=== PATIENT | female | born 1945 | race Caucasian/White ===

== ENCOUNTER 2022-01-27 08:57 | Emergency (ER) | payer BC, SELFPAY ==
--- NOTE | ~2022-01-27 | XR_ITS ---
EXAMINATION: XR CHEST CLINICAL INFORMATION: Weakness. COMPARISON: None TECHNIQUE: Frontal view of the chest was obtained. Rotated positioning is suboptimal. FINDINGS: The patient's chin partially obscures the left apex. The lungs appear clear. The heart and mediastinal structures are unremarkable. Multilevel sternotomy wires are intact. XR/XR chest 1V IMPRESSION: Limited study without overt acute cardiopulmonary process.
--- NOTE | ~2022-01-27 | CT_ITS ---
EXAMINATION: CT HEAD WITHOUT CONTRAST CLINICAL INFORMATION: Altered mental status. COMPARISON: None TECHNIQUE: Contiguous axial imaging was performed from the skull base to vertex without intravenous administration of contrast. Coronal and sagittal reformatted images were obtained. This CT examination was performed using dose optimization techniques as appropriate, variously including the following: *Automated exposure control *Adjustment of mA and/or kV according to patient size (this includes techniques or standardized protocols for targeted exams where dose is matched to indication/reason for exam; i.e. extremities or head) *Use of iterative reconstruction technique DLP: 680 mGy-cm FINDINGS: There is mild widening of the cortical sulci and associated ventriculomegaly. The lateral ventricles are symmetrical. The third and fourth ventricles are in their normal midline position. The basilar and prepontine cisterns are unremarkable. There is no acute intra or extracerebral abnormality. There is no mass effect or midline shift. Sections through the bony calvarium are unremarkable. The orbits are intact. The paranasal sinuses are clear. The mastoid air cells are clear. CT/CT head/brain wo con IMPRESSION: No acute intracranial pathology.
--- NOTE | 2022-01-27 09:04 | ED.WEAKNESS ---
HPI - Weakness General Chief complaint: General Medical Stated complaint: weakness, ams Time Seen by Provider: 01/27/22 09:04 Source: patient Mode of arrival: EMS Limitations: altered mental status (cognitive impairment) History of Present Illness HPI Narrative: reportedly at assisted living facility - couldn't get out of chair was too weak Complaint: generalized weakness Onset (ago): day(s) (lsat night) Duration: constant Location: generalized Migration: none Severity: moderate Quality: aching Relieving factors: none Exacerbating factors: movement Context: recent illness Associated symptoms: denies other symptoms Related Data Allergies Allergy/AdvReac Type Severity Reaction Status Date / Time No Known Allergies Allergy Verified 01/27/22 09:12 Review of Systems Review of Systems: ROS unable to be obtained due to advanced dementia [facility] Past Medical History Source: nursing notes reviewed Medical History (Updated 01/27/22 @ 09:37 by Clarisse Matias DO) Afib Anticoagulated CHF (congestive heart failure) Dementia Hip fracture Thoracic aortic aneurysm UTI (urinary tract infection) Social History Social History (Updated 01/27/22 @ 09:15 by Clarisse Matias DO) Patient Tobacco Use Status: Tobacco use Unknown Advance Directives: Yes Advance Directives on File: Yes Advance Directives Date on File: 01/27/22 Physical Exam Vital Signs: Vital Signs: Last Vital Signs Temp 98.6 F 01/27/22 09:12 Pulse 83 01/27/22 09:12 Resp 16 01/27/22 09:12 BP 134/86 01/27/22 09:12 Pulse Ox 96 01/27/22 09:12 BMI result Body Mass Index 28.0 Appearance: Alert. Oriented X1 (self). No acute distress. Eyes: Pupils equal, round and reactive to light. ENT: Pharynx normal. Neck: Normal inspection. Neck supple. CVS: Normal heart rate and rhythm. Pulses normal. Respiratory: No respiratory distress. Breath sounds normal. Abdomen: Soft and nontender. Skin: Skin warm and dry. Normal skin color. Normal skin turgor. Extremities: 1+ pittind LE edema. No calf ttp Neuro: Oriented X 1 (self). No motor deficit. No sensory deficit. Course Course Course Narrative: records from [facility] requested - admitted for mechanical fall no fracture, COVID pos 01/16 needed placement no resp issues DC 4/28 medically cleared for CM Patient placed in physician observation at 1055am. The indication for observation is that the patient needs more time for CM to aid in safe DC. At this time the patient is well developed well nourished, lungs clear, CV RRR, abd nontender, neuro is at baseline MDM - Weakness MDM Narrative Medical decision making narrative: 76 yo female with hx of dementia, UTIs, at assisted living facility, just seen at [facility] unsure for what she reports femur fracture ?, on eliquis for unknown reason - at this time will obtain labs, UA, CT head/CXR given her vague complaints of weaknes, blood thinner use. She is a poor historian. Dispo per results and findings. Lab Data Result diagrams: 01/27/22 09:24 01/27/22 09:24 Labs: Lab Results 01/27/22 01/27/22 01/27/22 Range/Units 09:24 09:24 09:24 WBC 10.6 (4.8-10.8) X10*3/uL RBC 4.63 (4.20-5.50) X10*6/uL Hgb 12.4 (12.0-16.0) g/dl Hct 37.8 (37.0-47.0) % MCV 81.6 (80.0-98.0) fL MCH 26.8 L (27.0-33.0) pg MCHC 32.8 (31.0-35.0) g/dl RDW 14.0 (11.0-16.0) % Plt Count 293 (160-400) X10*3/uL MPV 9.0 L (9.4-12.3) fL Immature Gran % (Auto) 0.6 H (0.0-0.4) % Neut % (Auto) 83.9 H (45-73) % Lymph % (Auto) 9.8 L (20-40) % [place] % (Auto) 4.8 (2-11) % Eos % (Auto) 0.3 (0-4) % Baso % (Auto) 0.6 (0-2) % Lymph # (Auto) 1.0 L (1.2-4.9) X10*3/uL [place] # (Auto) 0.5 (0.1-1.2) X10*3/uL Eos # (Auto) 0.0 (0.0-0.4) X10*3/uL Baso # (Auto) 0.1 (0.0-0.2) X10*3/uL Abs Immat Gran (auto) 0.06 H (0.00-0.03) X10*3/uL Absolute Neuts (auto) 8.9 H (2.0-8.3) x10*3/uL Absolute Nucleated RBC 0.000 (0.0-0.012) X10*3/uL Nucleated RBC % (auto) 0.0 (0.0-0.2) /100WBC APTT 37.2 (24.1-38.0) SEC Sodium 138 (135-145) mmol/L Potassium 4.3 (3.3-5.1) mmol/L Chloride 106 (96-108) mmol/L Carbon Dioxide 23 (22-29) mmol/L Anion Gap 13 (12-20) BUN 31 H (9-16) mg/dL Creatinine 0.88 (0.5-1.4) mg/dL Estim Creat Clear Calc 54.4 Estimated GFR > 60 Random Glucose 112 (60-115) mg/dL Lactic Acid (0.5-2.0) mmol/L Calcium 9.8 (8.4-10.2) mg/dL Magnesium 2.0 (1.6-2.6) mg/dL Total Bilirubin 1.0 (0.0-1.0) mg/dL Direct Bilirubin 0.4 (0.0-0.5) mg/dL AST 16 (5-31) U/L ALT 8 (0-31) U/L Alkaline Phosphatase 124 H (39-117) U/L Total Creatine Kinase 169 H (26-140) U/L Troponin I High Sens (<3.5-17.0) ng/L Total Protein 6.4 L (6.5-8.0) g/dL Albumin 3.9 (3.5-5.0) g/dL Lipase 15 (8-78) U/L TSH (0.32-4.0) uIU/mL Urine Color Urine Appearance Urine pH (5.0-8.0) Ur Specific [place] (1.005-1.025) Urine Protein (NEG-TRACE) MG/DL Urine Glucose (UA) (NEG) MG/DL Urine Ketones (NEG) MG/DL Urine Blood (NEG) Urine Nitrite (NEG) Ur Leukocyte Esterase (NEG) COVID-19 (JUAN PABLO) (Negative) COVID-19 Clin Com 01/27/22 01/27/22 01/27/22 Range/Units 09:24 09:24 09:26 WBC (4.8-10.8) X10*3/uL RBC (4.20-5.50) X10*6/uL Hgb (12.0-16.0) g/dl Hct (37.0-47.0) % MCV (80.0-98.0) fL MCH (27.0-33.0) pg MCHC (31.0-35.0) g/dl RDW (11.0-16.0) % Plt Count (160-400) X10*3/uL MPV (9.4-12.3) fL Immature Gran % (Auto) (0.0-0.4) % Neut % (Auto) (45-73) % Lymph % (Auto) (20-40) % [place] % (Auto) (2-11) % Eos % (Auto) (0-4) % Baso % (Auto) (0-2) % Lymph # (Auto) (1.2-4.9) X10*3/uL [place] # (Auto) (0.1-1.2) X10*3/uL Eos # (Auto) (0.0-0.4) X10*3/uL Baso # (Auto) (0.0-0.2) X10*3/uL Abs Immat Gran (auto) (0.00-0.03) X10*3/uL Absolute Neuts (auto) (2.0-8.3) x10*3/uL Absolute Nucleated RBC (0.0-0.012) X10*3/uL Nucleated RBC % (auto) (0.0-0.2) /100WBC APTT (24.1-38.0) SEC Sodium (135-145) mmol/L Potassium (3.3-5.1) mmol/L Chloride (96-108) mmol/L Carbon Dioxide (22-29) mmol/L Anion Gap (12-20) BUN (9-16) mg/dL Creatinine (0.5-1.4) mg/dL Estim Creat Clear Calc Estimated GFR Random Glucose (60-115) mg/dL Lactic Acid 1.0 (0.5-2.0) mmol/L Calcium (8.4-10.2) mg/dL Magnesium (1.6-2.6) mg/dL Total Bilirubin (0.0-1.0) mg/dL Direct Bilirubin (0.0-0.5) mg/dL AST (5-31) U/L ALT (0-31) U/L Alkaline Phosphatase (39-117) U/L Total Creatine Kinase (26-140) U/L Troponin I High Sens < 3.5 (<3.5-17.0) ng/L Total Protein (6.5-8.0) g/dL Albumin (3.5-5.0) g/dL Lipase (8-78) U/L TSH 1.21 (0.32-4.0) uIU/mL Urine Color Urine Appearance Urine pH (5.0-8.0) Ur Specific [place] (1.005-1.025) Urine Protein (NEG-TRACE) MG/DL Urine Glucose (UA) (NEG) MG/DL Urine Ketones (NEG) MG/DL Urine Blood (NEG) Urine Nitrite (NEG) Ur Leukocyte Esterase (NEG) COVID-19 (JUAN PABLO) (Negative) COVID-19 Clin Com 01/27/22 01/27/22 Range/Units 09:33 10:42 WBC (4.8-10.8) X10*3/uL RBC (4.20-5.50) X10*6/uL Hgb (12.0-16.0) g/dl Hct (37.0-47.0) % MCV (80.0-98.0) fL MCH (27.0-33.0) pg MCHC (31.0-35.0) g/dl RDW (11.0-16.0) % Plt Count (160-400) X10*3/uL MPV (9.4-12.3) fL Immature Gran % (Auto) (0.0-0.4) % Neut % (Auto) (45-73) % Lymph % (Auto) (20-40) % [place] % (Auto) (2-11) % Eos % (Auto) (0-4) % Baso % (Auto) (0-2) % Lymph # (Auto) (1.2-4.9) X10*3/uL [place] # (Auto) (0.1-1.2) X10*3/uL Eos # (Auto) (0.0-0.4) X10*3/uL Baso # (Auto) (0.0-0.2) X10*3/uL Abs Immat Gran (auto) (0.00-0.03) X10*3/uL Absolute Neuts (auto) (2.0-8.3) x10*3/uL Absolute Nucleated RBC (0.0-0.012) X10*3/uL Nucleated RBC % (auto) (0.0-0.2) /100WBC APTT (24.1-38.0) SEC Sodium (135-145) mmol/L Potassium (3.3-5.1) mmol/L Chloride (96-108) mmol/L Carbon Dioxide (22-29) mmol/L Anion Gap (12-20) BUN (9-16) mg/dL Creatinine (0.5-1.4) mg/dL Estim Creat Clear Calc Estimated GFR Random Glucose (60-115) mg/dL Lactic Acid (0.5-2.0) mmol/L Calcium (8.4-10.2) mg/dL Magnesium (1.6-2.6) mg/dL Total Bilirubin (0.0-1.0) mg/dL Direct Bilirubin (0.0-0.5) mg/dL AST (5-31) U/L ALT (0-31) U/L Alkaline Phosphatase (39-117) U/L Total Creatine Kinase (26-140) U/L Troponin I High Sens (<3.5-17.0) ng/L Total Protein (6.5-8.0) g/dL Albumin (3.5-5.0) g/dL Lipase (8-78) U/L TSH (0.32-4.0) uIU/mL Urine Color YELLOW Urine Appearance CLEAR Urine pH 6.0 (5.0-8.0) Ur Specific [place] 1.020 (1.005-1.025) Urine Protein TRACE (NEG-TRACE) MG/DL Urine Glucose (UA) NEG (NEG) MG/DL Urine Ketones NEG (NEG) MG/DL Urine Blood NEG (NEG) Urine Nitrite NEG (NEG) Ur Leukocyte Esterase NEG (NEG) COVID-19 (JUAN PABLO) Positive A (Negative) COVID-19 Clin Com See Note ECG Data Attestation: I personally reviewed and interpreted this ECG as follows: ECG interpretation date: 01/27/22 ECG interpretation time: 10:16 Interpretation: Rate: 81 Rhythm: afib [place]: normal Normal QRS complex. ST T wave : nonspecific, no THIAGO qTC: normal prior studies: no acute ischemia The study has been interpreted contemporaneously by me. . Discharge Plan Discharge Clinical Impression: Weakness Patient Disposition: Still a Patient
[2022-01-27 09:12] VITALS: BP 134/86; PULSE 83; RESP 16; TEMP 37; O2SAT 96; BMI 28.0
--- NOTE | 2022-01-27 09:13 | ECG_ITS ---
Test Reason : WEAKNESS Blood Pressure : / mmHG Vent. Rate : 081 BPM Atrial Rate : 000 BPM P-R Int : 000 ms QRS Dur : 086 ms QT Int : 362 ms P-R-T Axes : 000 026 -27 degrees QTc Int : 420 ms Atrial fibrillation Nonspecific T wave abnormality Abnormal ECG No previous ECGs available Referred By: Clarisse Matias Electronically Signed By:Valdez Greene
[2022-01-27 09:30] LABS: MANUAL DIFF FLAG NO
[2022-01-27 09:35] LABS: Basophils Absolute Auto 0.1 X10*3/uL (0.0-0.2); Basophils Percent Auto 0.6 % (0-2); Eosinophils Percent Auto 0.3 % (0-4); Hematocrit 37.8 % (37.0-47.0); Hemoglobin 12.4 g/dl (12.0-16.0); Imm Gran Abs Auto 0.06 X10*3/uL (0.00-0.03); Imm Gran Pct Auto 0.6 % (0.0-0.4); Lymphocytes Percent Auto 9.8 % (20-40); Mean Corpuscular HGB Conc 32.8 g/dl (31.0-35.0); Mean Corpuscular Hemoglobin 26.8 pg (27.0-33.0); Mean Corpuscular Volume 81.6 fL (80.0-98.0); Monocytes Absolute Auto 0.5 X10*3/uL (0.1-1.2); Monocytes Percent Auto 4.8 % (2-11); Neutrophils Absolute Auto 8.9 x10*3/uL (2.0-8.3); Neutrophils Percent Auto 83.9 % (45-73); Platelet Count 293 X10*3/uL (160-400); Red Blood Count 4.63 X10*6/uL (4.20-5.50); White Blood Count 10.6 X10*3/uL (4.8-10.8)
[2022-01-27 09:44] LABS: Partial Thromboplastin Time 37.2 SEC (24.1-38.0)
[2022-01-27 09:52] LABS: COVID-19 Test Positive (Negative); IDNOW Serial# 16C4AD1C
[2022-01-27 09:56] LABS: Alanine Aminotransferase 8 U/L (0-31); Albumin Level 3.9 g/dL (3.5-5.0); Alkaline Phosphatase 124 U/L (39-117); Anion Gap 13 (12-20); Aspartate Amino Transferase 16 U/L (5-31); Bilirubin Direct 0.4 mg/dL (0.0-0.5); Blood Urea Nitrogen 31 mg/dL (9-16); Calcium 9.8 mg/dL (8.4-10.2); Carbon Dioxide 23 mmol/L (22-29); Chloride 106 mmol/L (96-108); Creatinine Clr Calc Pharmacy 54.4; Estimated Glomerular Filt Rate > 60; Glucose Random 112 mg/dL (60-115); Lipase 15 U/L (8-78); Potassium 4.3 mmol/L (3.3-5.1); Sodium 138 mmol/L (135-145); Total Protein 6.4 g/dL (6.5-8.0)
[2022-01-27 09:59] LABS: Troponin-I High Sensitivity < 3.5 ng/L (<3.5-17.0)
[2022-01-27 10:14] LABS: TSH reflex Free T4 1.21 uIU/mL (0.32-4.0)
--- NOTE | 2022-01-27 10:41 | PC.NURSE ---
straight cath completed- pt tolerated well
[2022-01-27 10:51] LABS: Appearance Urine CLEAR; Color Urine YELLOW; Glucose Urine UA NEG (NEG); Leukocyte Esterase Urine NEG (NEG); Nitrite Urine NEG (NEG); Urine Blood NEG (NEG); Urine Ketones NEG (NEG); Urine Protein TRACE MG/DL (NEG-TRACE)
--- NOTE | 2022-01-27 10:58 | PC.NURSE ---
plan for pt/cm consults
[2022-01-27 11:14] VITALS: PULSE 79; RESP 14; TEMP 36.8; O2SAT 97
--- NOTE | 2022-01-27 13:36 | MHC.CM.ED ---
Received case management consult from Dr Matias. Patient came to ER from [facility]. Patient has never been to [facility] [place]. Patient was d/c'd from [facility] on 01/24 with Edna FARRISA. Patient originally tested positive for Covid on 01/16. Per Nery at [facility], patient is from their assisted living building. Patient can be confused but is mostly able to identify when ADL's need to be done. But since discharge from [facility], patient has been experiencing increased weakness. ER work up is essentially negative at this time. Patient has a conservator, Maryellen. Attempted to reach Maryellen via telephone at [phone]. Left message requesting return telephone call to find out if Maryellen is patient's guardian as well. HCP from [facility], lists Amaya and Sharmin as her proxies. Attempted to reach Amaya via telephone at [phone]. Left message requesting return telephone call. Attempted to reach Sharmin via telephone at [phone]. Left message requesting return telephone call. Physical therapy eval is pending at this time. Anticipate STR will be needed. Referral broadcasted in [facility] at this time. Continue to monitor for d/c needs.
[2022-01-27 15:36] VITALS: RESP 16; TEMP 36.9; O2SAT 98
--- NOTE | 2022-01-27 16:38 | PHA.MEDREC ---
Pharmacy Consult ? Medication Reconciliation Pharmacy has completed the medication reconciliation. Patient was just discharged from [facility] on 01/24/22. She was discharged on doxycycline 100 mg BID for 5 days.
[2022-01-27 19:45] VITALS: BP 147/62; PULSE 75; RESP 16; TEMP 37.3; O2SAT 97
[2022-01-28 01:09] VITALS: BP 133/88; PULSE 72; RESP 14; O2SAT 97
[2022-01-28 06:31] VITALS: PULSE 64; RESP 16; O2SAT 96
--- NOTE | 2022-01-28 06:32 | PC.NURSE ---
Pt sleeping in bed in NAD, wakes easily to voice, denies pain. VSS @ this time.
--- NOTE | 2022-01-28 08:38 | MHC.CM.ED ---
Patient remains in ER. Physical therapy eval completed. Short term rehab is recommended. Tried to return Amaya's call via telephone at [phone]. Left message reqeusting return telephone call. Tried to return Sharmin's call via telephone at [phone]. Left message requesting return telephone call. Continue to monitor for d/c needs.
--- NOTE | 2022-01-28 08:56 | MHC.CM.ED ---
Received return telephone call from Amaya. She can be reached via cell at [phone]. She is agreable to STR for patient. Amaya understands referral has been broadcasted and CM will discuss any bed offer with her. Continue to monitor for d/c needs.
[2022-01-28] MEDS: Furosemide 40 MG TABLET PO (09:48)
[2022-01-28] MEDS: Cyanocobalamin (Vitamin B-12) 1,000 MCG TABLET 1000 MCG PO (09:48)
[2022-01-28] MEDS: dilTIAZem HCL CD 180 MG CAP.ER.24H PO (09:48)
[2022-01-28] MEDS: Apixaban 5 MG TABLET PO ×2 (09:48→20:42)
[2022-01-28] MEDS: risperiDONE 0.25 MG TABLET PO (09:49)
--- NOTE | 2022-01-28 13:39 | MHC.CM.ED ---
Addendum entered by Cherelle Pitts 01/28/22 14:24: COVID + on 01/16 at [facility]: asymptomatic: this information is in the ED Summary that the STR referrals have access to. Addendum entered by Cherelle Pitts 01/28/22 14:21: Review of EMR notes pt tested COVID + on 01/27 at [facility]. This may be a barrier to transfer. Will update referrals to ensure transparency of information. Original Note: Met with pt who was alert, pleasant but unaware of why she is in the ED. [facility] interested [facility] pt but does not have bed availability today. They suggest contacting on 01/29 in the am. [facility] also interested - they are requesting an updated PT note on 01/29 to submit for insurance auth. They also do not have bed availability today but expect a bed tomorrow. Call placed to pt's HCP, Amaya at [phone] to update her on above. She will contact cathleen Finney's other support person to discuss STR options. 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 peonies) and was very artistic. Amaya states if pt gets a little whiffy to talk about these things as it helps. Pt will board in the ED pending PT reassessment / facility bed availability on 01/29. ED care team aware of plan.
--- NOTE | 2022-01-28 15:14 | PC.NURSE ---
Patient had liquid BM. Patient is cleaned up and resting. 01/28/2022
[2022-01-28 15:27] VITALS: BP 125/44; PULSE 53; RESP 12; TEMP 36.5; O2SAT 99
--- NOTE | 2022-01-28 16:28 | PC.NURSE ---
Pt will have bed tomorrow at [place] [facility]
--- NOTE | 2022-01-28 17:30 | PC.NURSE ---
Pt cleaned for urine incontinence and repositioned to back in hospital bed. Reassured. Remains confused, making statements that this RN will harm pt but good effect with verbal redirection.
[2022-01-28 19:39] VITALS: BP 135/55; PULSE 77; RESP 18; TEMP 36.8; O2SAT 99
[2022-01-28] MEDS: risperiDONE 0.25 MG TABLET 0.5 MG PO (20:42)
[2022-01-28] MEDS: Melatonin 3 MG TABLET 6 MG PO (20:42)
[2022-01-29 03:13] VITALS: BP 126/49; PULSE 64; RESP 14; O2SAT 99
[2022-01-29] MEDS: Apixaban 5 MG TABLET PO ×2 (07:56→20:22)
[2022-01-29] MEDS: Cyanocobalamin (Vitamin B-12) 1,000 MCG TABLET 1000 MCG PO (07:56)
[2022-01-29] MEDS: dilTIAZem HCL CD 180 MG CAP.ER.24H PO (07:57)
[2022-01-29] MEDS: Furosemide 40 MG TABLET PO (07:58)
[2022-01-29] MEDS: risperiDONE 0.25 MG TABLET PO (07:58)
--- NOTE | 2022-01-29 08:35 | MHC.CM.ED ---
Patient remains in ER. Clinical updates sent to [facility]. Continue to monitor for d/c needs.
[2022-01-29 08:55] VITALS: BP 106/50; PULSE 64; RESP 14; TEMP 36.4; O2SAT 100
--- NOTE | 2022-01-29 10:34 | PC.NURSE ---
Medium BM noted, loose in nature. Reddend bottom noted. skin cleansed. Barrier cream applied. Pt offloaded.
--- NOTE | 2022-01-29 12:16 | MHC.CM.ED ---
Patient remains in ER. [facility] is not able to offer a bed. [facility]'t have a bed today. [facility] does have a bed. Spoke with HCP/friend, Amaya via telephone at [phone]. Amaya agreeable to bed at [facility]. [facility] is in the process of obtaining insurance auth. Continue to monitor for d/c needs.
[2022-01-29 14:50] VITALS: BP 111/47; PULSE 62; RESP 14; TEMP 36.6; O2SAT 98
--- NOTE | 2022-01-29 15:32 | MHC.CM.ED ---
Received telephone call from Cynthia garcia [facility]. [facility] has not processed auth yet. Anticipate patient will be in ER overnight. Continue to monitor for d/c needs.
[2022-01-29] MEDS: Melatonin 3 MG TABLET 6 MG PO (20:22)
[2022-01-29] MEDS: risperiDONE 0.25 MG TABLET 0.5 MG PO (20:22)
--- NOTE | 2022-01-29 20:27 | PC.NURSE ---
pt resting in bed, pleasantly confused, compliant with med administration
--- NOTE | 2022-01-29 21:00 | PC.NURSE ---
pt incontinent of urine, given incontinent care by chief ophthalmic technician, 1 assist, pt resting in bed at this time
[2022-01-29 22:40] VITALS: BP 110/43; PULSE 76; RESP 16; TEMP 36.6; O2SAT 99
--- NOTE | 2022-01-29 23:29 | PC.NURSE ---
pt sleeping in bed, checked for positioning
[2022-01-30 00:14] VITALS: PULSE 66; RESP 15; O2SAT 99
[2022-01-30 00:20] VITALS: RESP 16; O2SAT 98
[2022-01-30 04:27] VITALS: BP 128/76; PULSE 74; RESP 16; TEMP 36.6; O2SAT 98
[2022-01-30 06:03] VITALS: PULSE 74; RESP 18; O2SAT 97
--- NOTE | 2022-01-30 07:13 | PC.NURSE ---
Report received. Patient asleep on stretcher at this time. Respirations regular, even, and nonlabored. Skin PWD. Patient awaiting insurance authorization for [facility] transfer. Will continue to monitor.
[2022-01-30] MEDS: dilTIAZem HCL CD 180 MG CAP.ER.24H PO (10:07)
[2022-01-30] MEDS: Furosemide 40 MG TABLET PO (10:07)
[2022-01-30] MEDS: Apixaban 5 MG TABLET PO (10:07)
[2022-01-30] MEDS: Cyanocobalamin (Vitamin B-12) 1,000 MCG TABLET 1000 MCG PO (10:07)
[2022-01-30] MEDS: risperiDONE 0.25 MG TABLET PO (10:08)
--- NOTE | 2022-01-30 10:14 | PC.NURSE ---
Patient medicated with AM meds. Remains resting on hospital bed. Reports comfort. Respirations regular and even. Skin PWD. Cleaned patient of incontinent urine. Replaced linens and gown. Placed purewik for urine collection at this time. Will continue to monitor.
--- NOTE | 2022-01-30 10:17 | MHC.CM.ED ---
Patient remains in ER. [facility] has obtained insurance auth. Patient can leave at 1130am. [facility] booked. Med [facility] with chart. Patient, Darleen Conde RN and Dr Matias aware. Edna DUMONT made aware. Continue to monitor for d/c needs.
--- NOTE | 2022-01-30 11:16 | PC.NURSE ---
Attempted to call [facility] for nurse to nurse report. Will reattempt
== END 2022-01-30 11:21 | disposition skilled nursing facility (03) ==
PROVIDERS: Emergency Provider Emergency Medicine; PCP Internal Medicine
DX: R53.1 Weakness (principal); R41.82 Altered mental status, unspecified; I48.91 Unspecified atrial fibrillation; I50.9 Heart failure, unspecified; F03.90 Unspecified dementia, unspecified severity, without behavioral disturbance, psychotic disturbance, mood disturbance, and anxiety; Z79.01 Long term (current) use of anticoagulants; Z20.822 Contact with and (suspected) exposure to COVID-19
CPT/HCPCS: 36415; 70450; 71045; 80048; 80076; 81003; 82550; 83605; 83690; 83735; 84443; 84484; 85025; 85730; 87040; 87635; 93005; 97162; 97530; 99285